=== PATIENT | male | born 1975 | race Caucasian/White ===

== ENCOUNTER 2022-05-08 20:29 | Emergency (ER) | payer SELFPAY ==
[2022-05-08 23:08] LABS: BASOPHIL 0.5 % (0-2); EOSINOPHIL 0.8 % (0-5); HCT 45.8 % (42.0-52.0); HGB 15.4 g/dl (13.2-18.0); LYMPHOCYTE 25.2 % (15-48); MCH 30.8 pg (25.0-31.0); MCHC 33.6 g/dL (32.0-36.0); MCV 91.6 fL (78.0-100.0); MONOCYTE 7.4 % (0-12); MPV 9.3 fL (6.0-9.5); NEUTROPHIL 65.6 % (41-80); NRBC 0; PLT 240 K/uL (150-400); RDW 13.3 % (11.5-14.0)
[2022-05-08 23:21] LABS: ALBUMIN 4.1 g/dL (3.4-5.0); BILIRUBIN - TOTAL 0.3 mg/dL (0.2-1.0); BUN/CREAT RATIO (CALC) 21.8 RATIO; CREATININE 1.01 mg/dL (0.67-1.17); GLOBULIN (CALCULATION) 3.7 g/dL; POTASSIUM 3.8 mmol/L (3.5-5.1); TOTAL PROTEIN 7.8 g/dL (6.4-8.2)
[2022-05-09] MEDS ORDERED: FLEXERIL5 MG PO (00:14)
== END 2022-05-09 00:22 | disposition home or self-care (01) ==
LOC: FER 20:29
PROVIDERS: Emergency Medicine
DX: S13.4XXA Sprain of ligaments of cervical spine, initial encounter (principal); V43.52XA Car driver injured in collision with other type car in traffic accident, initial encounter
CPT/HCPCS: 36415; 70450; 71260; 72125; 80053; 83690; 85025; J7030; Q9967